=== PATIENT | male | born 1975 | race Two or more races ===

== ENCOUNTER 2019-04-21 17:30 | Emergency (ER) | payer OTHER ==
[~2019-04-21] VITALS: Ht 167.6 cm; Wt 95.3 kg
--- NOTE | 2019-04-21 17:42 | NUR ---
PT BIBPD FROM CARE HOME, C/O CHEST PAIN SHARP LIKE, NON RADIATING, PT IS AAOX3, NOT IN RESPIRATORY DISTRESS, HOOKED TO MONITOR, KEPT RESTED AND COMFORTABLE, WILL CONTINUE TO MONITOR.
[2019-04-21] MEDS ORDERED: LORAZEPAM 1 MG TABLET PO ONE (18:00)
--- NOTE | 2019-04-21 18:00 | NUR ---
SEEN AND EXAMINED BY JAYDON GALEANA
[2019-04-21 18:09] LABS: BASOPHILS # (AUTO) 0.1 /CMM (0.0-0.2); BASOPHILS % (AUTO) 0.6 % (0.0-2.0); EOSINOPHILS % (AUTO) 0.8 % (0.0-6.0); HEMATOCRIT 46 % (39-51); HEMOGLOBIN 15.7 g/dL (13.5-17.5); LYMPHOCYTES # (AUTO) 2.1 /CMM (0.8-4.8); LYMPHOCYTES % (AUTO) 15.2 % (20.0-44.0); MEAN CORPUSCULAR HGB CONC 34 g/dl (31.0-36.0); MEAN CORPUSCULAR VOLUME 84 fL (80-96); MONOCYTES # (AUTO) 0.8 /CMM (0.1-1.30); MONOCYTES % (AUTO) 5.9 % (2.0-12.0); NEUTROPHILS # (AUTO) 10.7 /CMM (1.8-8.9); NEUTROPHILS % (AUTO) 77.5 % (43.0-81.0); PLATELET COUNT (AUTO) 273 /CMM (150-450); RED BLOOD CELL COUNT(AUTO) 5.44 MIL/uL (4.5-6.0); WHITE BLOOD COUNT (AUTO) 13.8 K/uL (4.3-11.0)
[2019-04-21 18:19] LABS: CALCIUM, SERUM 9.7 mg/dL (8.5-10.1); CARBON DIOXIDE 27 mmol/L (21-32); CHLORIDE 96 mmol/L (98-107); CREATININE 0.9 mg/dL (0.6-1.3); POTASSIUM 4.3 mmol/L (3.5-5.1); SODIUM SERUM 130 mmol/L (136-145); UREA NITROGEN, BLOOD 16 mg/dL (7-18)
--- NOTE | 2019-04-21 18:20 | NUR ---
Carlos victor in [facility] - 04/21/19 at 1827 by TROY SEEN AND EXAMINED BY JAYDON JACOBS.
--- NOTE | 2019-04-21 18:24 | NUR ---
HOTEL RECREATIONAL FACILITIES MANAGER AT BEDSIDE FOR XRAY.
[2019-04-21 18:26] LABS: GLUCOSE 477 mg/dL (74-106)
[2019-04-21] MEDS ORDERED: IV NS 0.9% 1,000 ML BAG IV ONE (18:30)
[2019-04-21] MEDS ORDERED: LORAZEPAM 1 MG TABLET ONE (18:30)
--- NOTE | 2019-04-21 19:22 | NUR ---
REPORT GIVEN TO JUDITH CONRAD FOR ELISHA.
[2019-04-21 20:06] LABS: APPEARANCE,URINE HAZY (CLEAR); BILIRUBIN,URINE Negative (NEGATIVE); BLOOD, URINE Negative Ery/uL (NEGATIVE); COLOR,URINE Yellow (YELLOW); KETONES,URINE Negative (NEGATIVE); LEUKOCYTE ESTERASE ,URINE Trace (NEGATIVE); NITRITE, URINE Negative (NEGATIVE); PROTEIN,URINE Negative (NEGATIVE); UGLUCOSE 500 MG/DL mg/dL (NEGATIVE); UROBILINOGEN,URINE 0.2 EU/dL (0.2)
[2019-04-21] MEDS ORDERED: INSULIN ASPART/LISPRO 100 UNIT/ML CARTRIDGE SQ STA (20:18)
[2019-04-21 20:21] LABS: BACTERIA,URINE Moderate /HPF (None Seen); RBC,URINE 0-2 /HPF (0-2); SQUAMOUS EPITHELIAL CELL,UR Few /HPF (None Seen); YEAST,URINE Moderate /HPF (None Seen)
[2019-04-21] MEDS ORDERED: INSULIN REGULAR, HUMAN 100 UNIT/ML 10 ML VIAL ONE (20:23)
--- NOTE | 2019-04-21 20:34 | NUR ---
Patient is resting comfortably in bed . VSS Will cont to monitor ,
--- NOTE | 2019-04-21 21:44 | NUR ---
Patient is resting comfortably in bed with eyes closed. Easily aroused. VSS called lab fro trop draw
--- NOTE | 2019-04-21 22:46 | NUR ---
Patient discharged to [facility] in stable condition in custody. Written and verbal after care instructions given. Patient verbalizes understanding of instruction.
[2019-04-21 23:24] VITALS: BP 155/88
== END 2019-04-21 23:25 ==
LOC: ER 17:42
DX: E11.65 Type 2 diabetes mellitus with hyperglycemia (principal); R07.89 Other chest pain; I10 Essential (primary) hypertension; F41.9 Anxiety disorder, unspecified; F12.90 Cannabis use, unspecified, uncomplicated
CPT/HCPCS: 36415; 71045; 80048; 81001; 82962 ×3; 84484 ×2; 85025; 93005 ×2; 96360; 96372; 99284; J1815; J7030; 81000-TC; 87086-TC

== ENCOUNTER 2021-05-17 03:49 | Inpatient (IN) | payer MEDICAID ==
[~2021-05-17] VITALS: Ht 167.6 cm; Wt 97.5 kg
--- NOTE | 2021-05-17 04:02 | NUR ---
PT AAOX4. BIBSELF C/O HIGH SBP AND ANXIETY. PT WAS AT [facility], CHECKED HIS BP AND STATED IT WAS IN THE 180S. PT PLACED IN BED 2 ON MONITOR AND PULSE OX. AWAITING ER MD FOR EVAL AND ORDERS.
[2021-05-17 04:49] LABS: BASOPHILS # (AUTO) 0.1 K/uL (0.0-0.2); BASOPHILS % (AUTO) 0.4 % (0.0-2.0); EOSINOPHILS % (AUTO) 1.8 % (0.0-6.0); HEMATOCRIT 44 % (39-51); HEMOGLOBIN 14.7 g/dL (13.5-17.5); LYMPHOCYTES # (AUTO) 1.4 K/uL (0.8-4.8); LYMPHOCYTES % (AUTO) 9.5 % (20.0-44.0); MEAN CORPUSCULAR HGB CONC 34 g/dl (31.0-36.0); MEAN CORPUSCULAR VOLUME 85 fL (80-96); MONOCYTES # (AUTO) 0.7 K/uL (0.1-1.30); MONOCYTES % (AUTO) 4.8 % (2.0-12.0); NEUTROPHILS # (AUTO) 12.4 K/uL (1.8-8.9); NEUTROPHILS % (AUTO) 83.5 % (43.0-81.0); PLATELET COUNT (AUTO) 244 K/uL (150-450); RED BLOOD CELL COUNT(AUTO) 5.16 MIL/uL (4.5-6.0); WHITE BLOOD COUNT (AUTO) 14.9 K/uL (4.3-11.0)
--- NOTE | 2021-05-17 04:51 | NUR ---
PT PLACED ON 2L NC. ON ROOM AIR SAT 90%. W/ NC SAT 96%.
--- NOTE | 2021-05-17 04:56 | NUR ---
XRAY AT BEDSIDE
[2021-05-17 04:59] LABS: CALCIUM, SERUM 8.9 mg/dL (8.5-10.1); CARBON DIOXIDE 27 mmol/L (21-32); CHLORIDE 101 mmol/L (98-107); CREATININE 0.9 mg/dL (0.6-1.3); GLUCOSE 332 mg/dL (74-106); POTASSIUM 3.8 mmol/L (3.5-5.1); SODIUM SERUM 136 mmol/L (136-145); UREA NITROGEN, BLOOD 15 mg/dL (7-18)
[2021-05-17] MEDS ORDERED: LORAZEPAM 1 MG TABLET PO ONE (05:00)
--- NOTE | 2021-05-17 05:17 | NUR ---
Patient is resting comfortably in bed with eyes closed. Easily aroused. VSS
--- NOTE | 2021-05-17 05:38 | NUR ---
PT AMBULATED TO THE RESTROOM
--- NOTE | 2021-05-17 05:39 | NUR ---
NIMCOID SWABBED, SENT TO LAB.
[2021-05-17] MEDS ORDERED: ASPIRIN EC 325 MG TABLET.DR PO ONE ×2 (07:00→07:01)
[2021-05-17] MEDS: METOPROLOL SUCCINATE 50 MG TAB.SR.24H PO SCH (07:03)
--- NOTE | 2021-05-17 07:11 | NUR ---
PANEL PAGED PER DR'S ORDER. ADMITTING: DR PEREA
--- NOTE | 2021-05-17 07:32 | NUR ---
panel recreation assistant paged
--- NOTE | 2021-05-17 07:44 | NUR ---
MANUEL WAYNE TO PANEL MD IN PROGRESS.
--- NOTE | 2021-05-17 08:02 | NUR ---
BED 114-2
--- NOTE | 2021-05-17 08:11 | NUR ---
REPORT GIVEN TO SERVANDO WONG. AWAITING TRANSFER TO FLOOR.
--- NOTE | 2021-05-17 08:39 | NUR ---
PATIENT TRANSFERRED TO ROOM 114-2 VIA ACLS PROTOCOL. PATIENT A/OX4, IN STABLE CONDITION.
[2021-05-17 09:00] VITALS: BP 170/104
[2021-05-17] MEDS ORDERED: MAG HYDROX/AL HYDROX/SIMETH 30 ML UDC PO PRN (09:30)
[2021-05-17] MEDS ORDERED: ZOLPIDEM TARTRATE 5 MG TABLET PO PRN (09:30)
[2021-05-17] MEDS ORDERED: ACETAMINOPHEN 325 MG TABLET PO PRN (09:30)
[2021-05-17] MEDS ORDERED: Z GUARD REMEDY 2 OZ OINT TP PRN (09:30)
[2021-05-17] MEDS ORDERED: ONDANSETRON HCL/PF 4 MG/2 ML VIAL IVP PRN (09:30)
[2021-05-17] MEDS ORDERED: MAGNESIUM HYDROXIDE 30 ML UDC PO PRN (09:30)
[2021-05-17] MEDS ORDERED: hydrALAZINE HCL 25 MG TABLET PO STA (10:09)
[2021-05-17] MEDS: LISINOPRIL (20MG) 20 MG TABLET PO SCH (10:30)
[2021-05-17 13:00] VITALS: BP 161/92
[2021-05-17 17:00] VITALS: BP 168/90
--- NOTE | 2021-05-17 19:12 | NUR ---
SOFTWARE INSTALLATION ENGINEER: CONTINUITY OF CARE Patient in bed, awake. Sinus rhythm with PVC in the Tele monitor, denies chest pain. Tolerating room air, no c/o sob. Maintained safety.
--- NOTE | 2021-05-17 19:46 | NUR ---
NUCLEAR MEDICINE TECHNICIAN: NECK PAIN Given Tylenol PO for neck pain 01/25, will reassess.
--- NOTE | 2021-05-17 20:12 | NUR ---
patient received from er. vital signs taken. skin intact with multiple body tattoos. safety precautions implemented, side rails up x2, call light within reach. md made aware of elevated bp. obtained orders to administer hydralazine 25 mg po once and start patient on lisinopril daily and continue to monitor. will endorse care to upcoming shift.
[2021-05-17] MEDS: hydrALAZINE HCL IV 20 MG VIAL IV PRN (20:49)
[2021-05-17 21:18] VITALS: BP 198/116
--- NOTE | 2021-05-17 22:08 | NUR ---
FACILITY PRACTICE SPECIALIST: BP ELEVATED (20:49) BP 198/116 patient denies headache, no c/o chest pain. Notified INSULATION POWER UNIT TENDER Luz Maria. PRN Hydralazine given, will reassess.
--- NOTE | 2021-05-17 22:50 | NUR ---
CLINICAL DENTAL TECHNICIAN: UNABLE TO SLEEP Patient requesting sleep aid, inability to sleep. PRN Ambien given, will reassess hours of sleep with Ambien.
[2021-05-18 01:01] VITALS: BP 172/107
[2021-05-18] MEDS: hydrALAZINE HCL IV 20 MG VIAL IV PRN ×3 (04:42→20:57)
--- NOTE | 2021-05-18 04:42 | NUR ---
MULTI CRAFT MAINTENANCE TECHNICIAN: BP ELEVATED BP 165/94 patient denies headache, no c/o chest pain. PRN Hydralazine given, will reassess
[2021-05-18 05:02] VITALS: BP 165/94
[2021-05-18 05:58] LABS: CALCIUM, SERUM 8.8 mg/dL (8.5-10.1); CREATININE 0.7 mg/dL (0.6-1.3); MAGNESIUM 1.9 mg/dL (1.8-2.4); PHOSPHORUS 3.1 mg/dL (2.5-4.9); POTASSIUM 3.6 mmol/L (3.5-5.1)
[2021-05-18 06:11] LABS: BASOPHILS % (AUTO) 0.4 % (0.0-2.0); EOSINOPHILS % (AUTO) 4.1 % (0.0-6.0); HEMATOCRIT 45 % (39-51); HEMOGLOBIN 15.1 g/dL (13.5-17.5); LYMPHOCYTES # (AUTO) 2.6 K/uL (0.8-4.8); LYMPHOCYTES % (AUTO) 23.3 % (20.0-44.0); MEAN CORPUSCULAR HGB CONC 34 g/dl (31.0-36.0); MEAN CORPUSCULAR VOLUME 85 fL (80-96); MONOCYTES # (AUTO) 1.1 K/uL (0.1-1.30); MONOCYTES % (AUTO) 9.6 % (2.0-12.0); NEUTROPHILS % (AUTO) 62.6 % (43.0-81.0); PLATELET COUNT (AUTO) 273 K/uL (150-450); RED BLOOD CELL COUNT(AUTO) 5.27 MIL/uL (4.5-6.0); WHITE BLOOD COUNT (AUTO) 11.2 K/uL (4.3-11.0)
--- NOTE | 2021-05-18 06:39 | NUR ---
ASSEMBLY ASSOCIATE: END OF SHIFT REPORT Sinus rhythm with PVS HR 80's in the Tele monitor. No episode of chest pain. Hours of sleep 7hrs with Joelleien. Echo pending result. Maintained safety. BP improving after PRN Hydralazine. Will endorse to oncoming RN.
[2021-05-18] MEDS: METOPROLOL SUCCINATE 50 MG TAB.SR.24H PO SCH (07:15)
--- NOTE | 2021-05-18 07:19 | NUR ---
CAREER DEVELOPMENT COUNSELOR: BP ELEVATED BP 182/100 no c/o chest pain. Reports headache. Toprol XL am dose given. PRN Hydralazine not due at this time. Endorse to JUDITH Her to follow up with am Doctor.
--- NOTE | 2021-05-18 07:25 | NUR ---
RN OPENING NOTES PATIENT RESTING IN BED, ALERT AND ORIENTED X4, ABLE TO MAKE NEEDS KNOWN. NO COMPLAINTS OF PAIN AT THIS TIME. PATIENT ON ROOM AIR BREATHING EVEN AND UNLABORED AND TOLERATING WELL. PATIENT ON TELE MONITOR. IV SITE ON RIGHT HAND # 20 G PATENT AND INTACT RUNNING D5NS AT 100 ML/HR. SAFETY MEASURES IMPLEMENTED, BED LOCKED IN LOWEST POSITION, SIDE RAILS UP X2, CALL LIGHT WITHIN REACH. WILL CONTINUE TO MONITOR AND PROVIDE CARE THROUGHOUT SHIFT.
[2021-05-18 09:00] VITALS: BP 167/101
[2021-05-18] MEDS: LISINOPRIL (20MG) 20 MG TABLET PO SCH (09:48)
[2021-05-18] MEDS ORDERED: ATORVASTATIN 40 MG TABLET PO SCH (10:00)
[2021-05-18] MEDS ORDERED: AMLODIPINE BESYLATE 10 MG TABLET PO SCH (10:00)
[2021-05-18] MEDS ORDERED: ASPIRIN 81 MG TAB.CHEW PO SCH (10:00)
[2021-05-18] MEDS: IBUPROFEN 400 MG TABLET PO PRN ×2 (10:47→18:53)
[2021-05-18 13:00] VITALS: BP 162/104
[2021-05-18 17:00] VITALS: BP 163/95
--- NOTE | 2021-05-18 19:00 | NUR ---
RN CLOSING NOTES PATIENT IN BED, ALERT AND ORIENTED X4, ABLE TO MAKE NEEDS KNOWN. NO COMPLAINTS OF PAIN AT THIS TIME. PATIENT ON ROOM AIR BREATHING EVEN AND UNLABORED AND TOLERATING WELL. IV SITE ON RIGHT HAND # 20 G PATENT AND INTACT. IBUPROFEN ADMINISTERED FOR PATIENT COMPLAINTS OF RIGHT SCAPULA DISCOMFORT. SAFETY MEASURES IMPLEMENTED, BED LOCKED IN LOWEST POSITION, SIDE RAILS UP X2, CALL LIGHT WITHIN REACH. WILL ENDORSE CARE TO UPCOMING SHIFT.
--- NOTE | 2021-05-18 19:30 | NUR ---
RN NOTES Received patient awake on bed, a/ox4, ambulatory, at bedside, denies pain, no SOB, call light within reach, siderailsupx2, will continue to monitor
--- NOTE | 2021-05-18 21:03 | NUR ---
RN NOTES Patient Blood Pressure 168/101- Hydralazine 10mg IV given as ordered
[2021-05-18 21:07] VITALS: BP 168/101
[2021-05-19 05:00] VITALS: BP 180/94
[2021-05-19 06:40] VITALS: BP 186/94
[2021-05-19] MEDS: METOPROLOL SUCCINATE 50 MG TAB.SR.24H PO SCH (06:40)
--- NOTE | 2021-05-19 06:50 | NUR ---
RN NOTES PATIENT LEFT AGAINST MEDICAL ADVICE, PER PATIENT HIS FATHER WILL BE DISCHARGE FROM THE [facility] AT 0800AM AND NOBODY'S AT HOME, GAVE EDUCATION REGARDING THE CIRCUMSTANCES WHENEVER HE LEAVES AGAINST MEDICAL ADVICE, PT UNDERSTOOD AND STILL WANT TO LEAVE. CORBY SWANSON MADE AWARE
[2021-05-19] MEDS ORDERED: LISINOPRIL (20MG) 20 MG TABLET PO SCH (09:00)
== END 2021-05-19 06:50 | disposition left against medical advice (07) | DRG 812 ==
LOC: ER 03:49 → TELE1 08:14 → MEDSG1 05-18 19:40
PROVIDERS: ADMIT Family Medicine; ATTEND Family Medicine
DX: T50.901A Poisoning by unspecified drugs, medicaments and biological substances, accidental (unintentional), initial encounter (principal); E11.65 Type 2 diabetes mellitus with hyperglycemia; D72.829 Elevated white blood cell count, unspecified; E11.9 Type 2 diabetes mellitus without complications; E66.9 Obesity, unspecified; F12.90 Cannabis use, unspecified, uncomplicated; R07.9 Chest pain, unspecified; I10 Essential (primary) hypertension; Z68.34 Body mass index [BMI] 34.0-34.9, adult; Z20.822 Contact with and (suspected) exposure to COVID-19; Z83.3 Family history of diabetes mellitus; Z82.3 Family history of stroke; F41.9 Anxiety disorder, unspecified; Y92.009 Unspecified place in unspecified non-institutional (private) residence as the place of occurrence of the external cause
CPT/HCPCS: 36415; 71045-TC; 80048-TC; 80061-TC; 82962-TC; 83735-TC; 84100-TC; 84484-TC; 85025-TC; 87081-TC; 93307-TC; C9803; G0378; J0360

== ENCOUNTER 2021-08-08 17:39 | Emergency (ER) | payer MEDICAID, OTHER ==
[~2021-08-08] VITALS: Ht 167.6 cm; Wt 90.7 kg
--- NOTE | 2021-08-08 18:03 | NUR ---
CALLED TO TRIAGE,NO ANSWER
[2021-08-08] MEDS ORDERED: IBUPROFEN 600 MG TABLET PO ONE (19:00)
[2021-08-08] MEDS ORDERED: TDAP [DIPH/PERTUSSIS/TET] 0.5 ML VIAL IM ONE ×2 (19:00→19:08)
[2021-08-08] MEDS ORDERED: IBUPROFEN 600 MG TABLET ONE (19:08)
[2021-08-08] MEDS ORDERED: TETRACAINE HCL 0.5% OPHTALMIC 15 ML BOTTLE OP ONE (19:30)
[2021-08-08] MEDS ORDERED: FLUORESCEIN SODIUM OPHTH 1 EA STRIP OP ONE (19:30)
[2021-08-08] MEDS ORDERED: FLUORESCEIN SODIUM OPHTH 1 EA STRIP ONE (19:36)
[2021-08-08] MEDS ORDERED: IBUP-1955 PO (19:44)
[2021-08-08] MEDS ORDERED: POLY10DR3 EACHEYE (19:44)
--- NOTE | 2021-08-08 19:57 | NUR ---
Patient discharged to home in stable condition. Rx and Written and verbal after care instructions given. Patient verbalizes understanding of instruction.
[2021-08-08 21:30] VITALS: BP 150/85
== END 2021-08-08 19:58 | disposition home or self-care (01) ==
LOC: ER 17:44
DX: S01.111A Laceration without foreign body of right eyelid and periocular area, initial encounter (principal); I10 Essential (primary) hypertension; W25.XXXA Contact with sharp glass, initial encounter; Y93.89 Activity, other specified; Y92.091 Bathroom in other non-institutional residence as the place of occurrence of the external cause; Y99.8 Other external cause status
CPT/HCPCS: 70140-TC; 90715

== ENCOUNTER 2022-09-13 14:26 | Inpatient (IN) | payer MEDICAID, OTHER ==
[~2022-09-13] VITALS: Ht 167.6 cm; Wt 90.3 kg
[~2022-09-13 14:26] MED LIST: IBUP-1955 PO; POLY10DR3 EACHEYE
--- NOTE | 2022-09-13 15:19 | NUR ---
PT RETURNED FROM RADIOLOGY
--- NOTE | 2022-09-13 15:22 | NUR ---
COVID SWAB COLLECTED AND SENT TO LAB
--- NOTE | 2022-09-13 15:23 | NUR ---
established IV line at RAC 20g infusing
--- NOTE | 2022-09-13 15:24 | NUR ---
blood draw sent to lab.
[2022-09-13 15:38] LABS: BASOPHILS # (AUTO) 0.1 K/uL (0.0-0.2); BASOPHILS % (AUTO) 0.6 % (0.0-2.0); EOSINOPHILS % (AUTO) 2.6 % (0.0-6.0); HEMATOCRIT 44 % (39-51); HEMOGLOBIN 14.8 g/dL (13.5-17.5); LYMPHOCYTES # (AUTO) 2.7 K/uL (0.8-4.8); LYMPHOCYTES % (AUTO) 22.8 % (20.0-44.0); MEAN CORPUSCULAR HGB CONC 34 g/dl (31.0-36.0); MEAN CORPUSCULAR VOLUME 83 fL (80-96); MONOCYTES # (AUTO) 0.8 K/uL (0.1-1.30); MONOCYTES % (AUTO) 6.4 % (2.0-12.0); NEUTROPHILS % (AUTO) 67.6 % (43.0-81.0); PLATELET COUNT (AUTO) 254 K/uL (150-450); RED BLOOD CELL COUNT(AUTO) 5.25 MIL/uL (4.5-6.0); WHITE BLOOD COUNT (AUTO) 11.8 K/uL (4.3-11.0)
[2022-09-13 16:20] LABS: CALCIUM, SERUM 8.9 mg/dL (8.5-10.1); CARBON DIOXIDE 29 mmol/L (21-32); CHLORIDE 100 mmol/L (98-107); GLUCOSE 332 mg/dL (74-106); POTASSIUM 3.7 mmol/L (3.5-5.1); SODIUM SERUM 135 mmol/L (136-145); UREA NITROGEN, BLOOD 14 mg/dL (7-18)
[2022-09-13 16:26] LABS: ALANINE AMINOTRANSFERASE 18 U/L (12-78); ALBUMIN 3.5 g/dL (3.4-5.0); ALKALINE PHOSPHATASE 113 U/L (46-116); ASPARTATE AMINOTRANSFERASE 8 U/L (15-37); BILIRUBIN,DIRECT 0.1 mg/dL (0.0-0.2); BILIRUBIN,TOTAL 0.4 mg/dL (0.2-1.0); TOTAL PROTEIN, SERUM 7.3 g/dL (6.4-8.2)
[2022-09-13 16:38] LABS: MAGNESIUM 1.9 mg/dL (1.8-2.4)
[2022-09-13 16:44] LABS: BILIRUBIN,URINE NEGATIVE (NEGATIVE); COLOR,URINE YELLOW (YELLOW); LEUKOCYTE ESTERASE ,URINE NEGATIVE (NEGATIVE); NITRITE, URINE NEGATIVE (NEGATIVE); PROTEIN,URINE 100 mg/dl (NEGATIVE); UGLUCOSE >=1000 mg/dL (NEGATIVE); UROBILINOGEN,URINE 0.2 EU/dL (0.2)
[2022-09-13 17:12] LABS: THYROID STIMULATING HORMONE 0.459 uIU/mL (0.358-3.74)
[2022-09-13] MEDS ORDERED: LABETALOL HCL IV 100MG VIAL IV ONE (17:30)
--- NOTE | 2022-09-13 17:36 | NUR ---
BP at 170's/100's MD made aware.
[2022-09-13] MEDS ORDERED: LABETALOL HCL IV 100MG VIAL ONE (17:40)
[2022-09-13] MEDS ORDERED: DEXTROSE 50%-WATER 50 ML DISP.SYRIN IV PRN (18:00)
[2022-09-13 18:01] LABS: BACTERIA,URINE None seen /HPF (None Seen); RBC,URINE 0-2 /HPF (0-2); SQUAMOUS EPITHELIAL CELL,UR 0-2 /HPF (None Seen); WBC,URINE 0-2 /HPF (0-3)
--- NOTE | 2022-09-13 18:31 | NUR ---
BP 162/92
--- NOTE | 2022-09-13 19:41 | NUR ---
RECEIVED THIS MALE PATIENT AAOX4. PATIENT CAME WITH COMPLAINT OF DIZZINESS. ATTACHED TO MONITOR. VITALS CHECKED.
--- NOTE | 2022-09-13 20:31 | NUR ---
TELE 320-2
--- NOTE | 2022-09-13 21:11 | NUR ---
REPORT GIVEN TO JUDITH BEAULIEU
--- NOTE | 2022-09-13 21:35 | NUR ---
TRANSFERRED TO ROOM
[2022-09-13 21:45] VITALS: BP 179/113
[2022-09-13 22:00] VITALS: BP 179/113
[2022-09-13] MEDS: ATORVASTATIN 40 MG TABLET PO SCH (22:00)
--- NOTE | 2022-09-13 22:00 | NUR ---
CAGE FIGHTER NOTE ADMITTED THIS PATIENT FROM ER VIA RNEY. PATIENT IS AWAKE, ALERT AND ORIENTED X 4. BREATHING EVEN AND NONLABORED. ON ROOM AIR; TOLERATING WELL. NOT IN ANY FORM OF RESPIRATORY DISTRESS. NO C/O PAIN OR DISCOMFORT AT THIS TIME. ABLE TO MAKE NEEDS KNOWN. ON TELEMETRY MONITORING WHICH READS SINUS RHYTHM HR-77 BPM. WITH IV ACCESS ON RIGHT ANTECUBITAL 20g; PATENT, INTACT AND SALINE LOCKED. BODY ASSESSMENT DONE: SKIN IS INTACT. ALL PERSONAL BELONGINGS CHECKED AND INVENTORY DONE. ORIENTED TO STAFF, ROOM AND UNIT. SAFETY MEASURES IMPLEMENTED: CALL LIGHT AND TABLE WITHIN REACH, SIDE RAILS UP X 2, BED IN LOWEST LOCKED POSITION. WILL CONTINUE TO MONITOR.
--- NOTE | 2022-09-13 22:30 | NUR ---
EKG COMPLETED AT 7670, RESULTS GIVEN TO MINES SAFETY ENGINEER GRACE
[2022-09-13] MEDS: IV NS 0.9% 1,000 ML IV PRN (22:31)
[2022-09-13] MEDS: BLOOD SUGAR DIAGNOSTIC 1 EACH STRIP IN SCH (22:57)
[2022-09-13] MEDS ORDERED: HYDROCODONE/APAP 5/325MG TABLET PO PRN (23:30)
[2022-09-13] MEDS: *INSULIN REGULAR(HUMULIN R)HUM 100 UNIT/ML VIAL SQ PRN (23:51)
[2022-09-13] MEDS: MORPHINE SULFATE INJ 4 MG/ML DISP.SYRIN IV PRN (23:57)
--- NOTE | 2022-09-13 23:57 | NUR ---
RN NOTE PATIENT C/O FACIAL PAIN AND HEADACHE 8/10 PAIN SCALE. PRN MORPHINE 4MG GIVEN IV ORDERED. WILL CONTINUE TO MONITOR AND REASSESS PT.
[2022-09-14] VITALS: BP 173/85
[2022-09-14 04:00] VITALS: BP 151/87
[2022-09-14] MEDS: BLOOD SUGAR DIAGNOSTIC 1 EACH STRIP IN SCH ×4 (06:15→21:45)
[2022-09-14] MEDS: INSULIN REGULAR, HUMAN 100 UNIT/ML 3 ML VIAL SQ PRN ×3 (06:19→16:55)
--- NOTE | 2022-09-14 07:00 | NUR ---
RN CLOSING NOTE PATIENT IN BED; AWAKE, ALERT AND ORIENTED X 4. BREATHING EVEN AND NONLABORED. STABLE ON ROOM AIR. IN NO APPARENT DISTRESS. NO C/O PAIN OR DISCOMFORT AT THIS TIME. ON TELE MONITORING WHICH READS SINUS RHYTHM HR-67 BPM. WITH IV ACCESS ON RIGHT ANTECUBITAL 20g; PATENT AND INTACT RUNNING WITH NS 1L REGULATED @ 90 CC/HR; FLUSHES WELL. SAFETY MEASURES MAINTAINED: CALL LIGHT AND TABLE WITHIN REACH, SIDE RAILS UP X 2, BED IN LOWEST LOCKED POSITION. ENDORSED TO JUDITH MENDEZ FOR ELISHA.
[2022-09-14 09:00] VITALS: BP 178/98
[2022-09-14] MEDS ORDERED: ASPIRIN 81 MG TAB.CHEW PO ONE (09:00)
--- NOTE | 2022-09-14 09:34 | NUR ---
PATIENT REFUSING MRI PER AUTOMATED TELLER MANAGER RADHA)
[2022-09-14 10:53] LABS: BASOPHILS # (AUTO) 0.1 K/uL (0.0-0.2); BASOPHILS % (AUTO) 0.7 % (0.0-2.0); EOSINOPHILS % (AUTO) 3.3 % (0.0-6.0); HEMATOCRIT 44 % (39-51); HEMOGLOBIN 14.8 g/dL (13.5-17.5); LYMPHOCYTES # (AUTO) 2.2 K/uL (0.8-4.8); LYMPHOCYTES % (AUTO) 20.1 % (20.0-44.0); MEAN CORPUSCULAR HGB CONC 34 g/dl (31.0-36.0); MEAN CORPUSCULAR VOLUME 84 fL (80-96); MONOCYTES # (AUTO) 0.6 K/uL (0.1-1.30); MONOCYTES % (AUTO) 5.8 % (2.0-12.0); NEUTROPHILS # (AUTO) 7.5 K/uL (1.8-8.9); NEUTROPHILS % (AUTO) 70.1 % (43.0-81.0); PLATELET COUNT (AUTO) 262 K/uL (150-450); WHITE BLOOD COUNT (AUTO) 10.8 K/uL (4.3-11.0)
[2022-09-14 11:07] LABS: ALBUMIN 3.3 g/dL (3.4-5.0); BILIRUBIN,TOTAL 0.7 mg/dL (0.2-1.0); CALCIUM, SERUM 8.6 mg/dL (8.5-10.1); CREATININE 0.8 mg/dL (0.6-1.3); POTASSIUM 3.6 mmol/L (3.5-5.1); TOTAL PROTEIN, SERUM 7.1 g/dL (6.4-8.2)
--- NOTE | 2022-09-14 12:00 | NUR ---
Product Development Worker Consult SW received a consult request for homelessness. Pt. is 46 y.o. male who was admitted for dizziness. SW met with pt. at bedside. Pt. appears unkempt and is alert and oriented x4 and was cooperative throughout assessment.Pt. made normal eye contact, had a depressed mood, and had congruent affect. During assessment, pt. confirmed personal information and persons of contact. Pt. stated [place] the [place] [address] and would stay in motels. Per pt. report he is unsure if he is ambulatory because he still feels dizziness and is not independent with his ADLs. Pt. expressed feeling stressed because he can do basic daily activities. SW validated pt.s feelings and provided safe space for pt. to express feelings. Pt. reported receiving [employer] benefits. Pt. reports a hx of cannabis use. Pt. reported no hx of psychiatric dx but stated he is feeling depressed and has no visual or auditory hallucinations. JOAO assessed for suicidal and homicidal ideation in which pt. reported having suicidal ideation with plan (Pt stated he would not seek medical treatment and let himself get sick) and began to cry. SW provided psycho education re coping skills and highlighted pt.s strength in seeking tx. mental health resources in which pt. appeared agreeable. DC plan: When asked about pt.s plans after being discharged, pt. reported he was going back to the streets, or he was possibly going to stay at his sons house (Rogelio Reaagan ) but was not confirmed. JOAO offered pt. mcc placement in which pt. was not agreeable due to negative experiences in shelters. JOAO also offered pt. voluntary admission to a psych facility in which pt. declined. JOAO provided pt. with homeless resources and mental health resources in which pt. accepted them. Pt. signed the homeless waiver and was placed in his chart. JOAO discussed plan to request a psych eval due to SI with nurse and she was agreeable. Counseling--Outpatient [facility] [address] [place] [address] [place] [address] (Specializes in in-depth psychotherapy for emotional distress: anxiety, depression, interpersonal conflicts, life transitions, childhood abuse) [facility] [address] [place] [address] (Assist with solving problem marital difficulties, separation & divorce, aging parents, & grief, chronic & terminal illness) [facility] [address] [place] [address] (Deal with loss & grief, anxiety, marital difficulties) Homebound/Mental Health Services [address] [facility] [address] [place], [place] [id number] (Provide in-home mental services to people who are incapable of leaving their homes) [facility] [address] [facility] [place] [address] [facility] [address] [facility]. [place], [place] [id number] PSYCHIATRIC OUTPATIENT SERVICES [facility] Partial Hospitalization and Intensive Outpatient Program (Managed Care and [place] Only)[address] [facility] [phone] [facility] Partial Hospitalization and Outpatient [id number] [facility]. [address] [place], [place] [phone] [facility] [place] [id number] [facility] [place], [place] [phone] [facility] Partial Hospitalization and Outpatient [id number] [place], [phone] Substance Abuse resources provided included: [facility] Substance Abuse Self-Helpline (SAS) ; [facility] [address] [facility]. [place] [id number] ; [facility] [address] [facility] [address] ; [facility] [address] [address] [facility] [address] ; [facility] [address] [facility] [address] ; [facility] [address] [facility] [place] [address] ; [facility] [address] [facility] [phone] ; [facility] Substance Abuse Helpline(SAS)-[facility] ; [facility] ; [facility] [place]; [facility] [place]; [facility] [place]; [facility] Adam Castelan; [facility] [place]; [facility]; [facility]; [facility]'s [employer] [facility] Maria Guadalupe; Alcoholics Anonymous -SFV; Je-Mjeh-Hqicfxe ; Marijuana Anonymous -SFV; Narcotics Anonymous www.na.org;
[2022-09-14] MEDS ORDERED: IOHEXOL-350 100 ML VIAL IV ONE (14:14)
[2022-09-14] MEDS ORDERED: IV NS 0.9% 250 ML IV ONE (14:14)
[2022-09-14] MEDS ORDERED: CT SWABBABLE VALVE TRANS SET 1 EA INFUS.SET MC ONE (14:14)
[2022-09-14 16:48] VITALS: BP_SYST 165; BP_SYST 190; BP_DIAS 102; BP_DIAS 103
[2022-09-14] MEDS: MORPHINE SULFATE INJ 4 MG/ML DISP.SYRIN IV PRN (18:07)
--- NOTE | 2022-09-14 18:14 | NUR ---
NURSE CASE MANAGER CLOSING NOTE PATIENT RECEIVED IN BED AND SLEEPING. A/O X4 AND ABLE TO VERBALIZE ALL NEEDS. PATIENT REMAINS ON SHIP UNLOADER. IV ACCESS TO RAC REMAINS INTACT AND PATENT. ASSESSED BY SPEECH THERAPY ON SHIFT WITH DIET ADVANCED TO [facility]. PATIENT OBSERVED TO HAVE MANY EPISODES OF CRYING AND STATING THAT HE IS "DEPRESSED" TOLERATED MEALS WELL. PSYCH CONSULT ORDERED PER DOCTOR. PATIENT ALSO BY PT ON SHIFT. BLOOD SUGAR LEVELS ON SHIFT 1200= [phone]= 212, 6U OF INSULIN GIVEN EACH TIME FOR COVERAGE PER SLIDING SCALE. CTA OF BRAIN AND CAROTID COMPLETED ON SHIFT. TOLERATED PROCEDURE WELL. C/O PAIN TO RIGHT UPPER SHOULDER AREA. RECEIVED MORPHINE @ 1807. MEDICATION EFFECTIVE. SAFETY MEASURES INTACT, WITH BED LOW AND LOCKED. SIDERAIL UP X2, CALL LIGHT WITHIN REACH. WILL CONT TO MONITOR.
--- NOTE | 2022-09-14 19:35 | NUR ---
GUINEA PIG BREEDER OPENING NOTE RECEIVED PT AWAKE, SITTING IN BED. PT A/O X4, ABLE TO MAKE NEEDS KNOWN. IV ACCESS TO RIGHT AC 20G, INTACT, AND PATENT. NO ACUTE DISTRESS NOTED, NO S/S OF PAIN OR DISCOMFORT SEEN AT THIS TIME. SAFETY MEASURES IN PLACE: BED LOCKED IN LOWEST POSITION, SIDE RAILS UP X2, CALL LIGHT, AND BED SIDE TABLE WITHIN REACH. WILL CONTINUE TO MONITOR PT.
[2022-09-14 20:00] VITALS: BP 173/95
[2022-09-14] MEDS: ATORVASTATIN 40 MG TABLET PO SCH (21:38)
[2022-09-14] MEDS: *INSULIN REGULAR(HUMULIN R)HUM 100 UNIT/ML VIAL SQ PRN (21:44)
--- NOTE | 2022-09-14 22:57 | NUR ---
FRUIT PEELER NOTE PT'S BP WAS 173/95. BP RECHECKED MANUALLY. PT'S BP NOW: 184/110. MD DILLON ESQUIVEL CALLED, AND MADE AWARE. PT HAS NO BP MEDS. RECOMMENDS HYDRALAZINE 10 MG Q8 HR PRN FOR SBP> 160. ORDER FOLLOWED, AND IMPLEMENTED.
[2022-09-14] MEDS: hydrALAZINE HCL IV 20 MG VIAL IV PRN (23:20)
[2022-09-15] MEDS: MORPHINE SULFATE INJ 4 MG/ML DISP.SYRIN IV PRN ×2 (02:04→21:16)
[2022-09-15] MEDS: INSULIN REGULAR, HUMAN 100 UNIT/ML 3 ML VIAL SQ PRN ×3 (06:45→21:16)
[2022-09-15] MEDS: BLOOD SUGAR DIAGNOSTIC 1 EACH STRIP IN SCH ×4 (06:47→21:14)
--- NOTE | 2022-09-15 07:08 | NUR ---
DIE CAST OPERATOR CLOSING NOTE LEFT PATIENT IN BED , SLEEPING. PT ALERT AND ORIENTED X 4. BREATHING EVEN AND NONLABORED. STABLE ON ROOM AIR. IN NO APPARENT DISTRESS. NO C/O PAIN OR DISCOMFORT AT THIS TIME. ON TELE MONITORING WHICH READS SINUS RHYTHM. PT HAS IV ACCESS TO RIGHT ANTECUBITAL 20G. SAFETY MEASURES MAINTAINED: CALL LIGHT, AND BED SIDE TABLE WITHIN REACH, SIDE RAILS UP X 2, BED IN LOWEST LOCKED POSITION. WILL ENDORSE PT TO AM RN FOR ELISHA.
--- NOTE | 2022-09-15 07:30 | NUR ---
RN Receiving Report. Patient AOx4, able to express his concerns. Patient in room with no signs of distress. Introduced my self to patient and discussed plan of care. Patient is crying states he is stressed out at his current health situation. Discussed plan of care and the need to stabilize his current health situation. All safety precautions taken, call light and table within reach and bed at lowest position. Will continue to monitor throughout shift and provide care as needed.
[2022-09-15] MEDS: hydrALAZINE HCL IV 20 MG VIAL IV PRN ×3 (07:58→20:41)
[2022-09-15 08:00] VITALS: BP 175/110
[2022-09-15] MEDS: CLOPIDOGREL BISULFATE 75 MG TABLET PO SCH (08:46)
[2022-09-15 10:09] VITALS: BP 173/97
[2022-09-15] MEDS ORDERED: hydrALAZINE HCL IV 20 MG VIAL IV PRN (12:00)
[2022-09-15] MEDS ORDERED: LORAZEPAM INJ 2 MG/ML VIAL IV PRN ×2 (14:00)
[2022-09-15 16:00] VITALS: BP 130/100
[2022-09-15] MEDS: METFORMIN 500 MG TABLET PO SCH (16:38)
[2022-09-15] MEDS: DULOXETINE HCL 30 MG CAPSULE.DR PO SCH (16:38)
--- NOTE | 2022-09-15 17:35 | NUR ---
transfer table operator helper Note Patient transferred to Room #106, report given to nurse at bedside.
[2022-09-15] MEDS ORDERED: AMIODARONE 150 MG in IV D5W 100 ML IV ONE (18:00)
--- NOTE | 2022-09-15 18:04 | NUR ---
RN NOTE AMIO DRIP LOAD DOSE STARTED, BP-156/86 HR-157 AFIB RVR. WILL CONT TO MONITOR.
[2022-09-15] MEDS: AMIODARONE 450 MG in IV D5W 241 ML IV PRN (18:23)
--- NOTE | 2022-09-15 18:30 | NUR ---
RN NOTE AMIO DRIP STARTED, BP-133/82 HR-120. NO COMPLAINTS OF CHEST PAIN WILL CONTINUE TO MONITOR. TELE READING AFIB.
--- NOTE | 2022-09-15 19:10 | NUR ---
RN NOTES RECEIVED PT FOR CONTINUITY OF CARE. PATIENT A/OX4 IN NO S/SX OF ACUTE DISTRESS AT THIS TIME; CURRENTLY ON ROOM AIR; WITH 02 SAT >95% AT THIS TIME. WITH IV ACCESS R AC#20 PATENT, INTACT AND FLUSHING WELL. WITH RUNNING NS@90CC/HR. AND RUNNING AMIO PER PROTOCOL RECEIVED @ 1MG/MIN. WILL ENSURE SAFETY MEASURES WITHIN THE SHIFT. PATIENT BED ALARM IS ON. HEAD OF BED ELEVATED. BED IS LOCKED, IN LOWEST POSITION AND SIDE RAILS UP. CALL LIGHT WITHIN REACH OF THE PATIENT. WILL CONTINUE TO MONITOR AND REASSESS FOR ANY CHANGES AND WILL CARRY OUT ANY ONGOING AND ACTIVE MD ORDER.
[2022-09-15] MEDS: ONDANSETRON HCL/PF 4 MG/2 ML VIAL IV PRN (19:40)
[2022-09-15 20:00] VITALS: BP 180/100
[2022-09-15] MEDS: IV NS 0.9% 1,000 ML IV PRN (20:29)
[2022-09-15] MEDS: ATORVASTATIN 40 MG TABLET PO SCH (21:03)
[2022-09-15 21:30] VITALS: BP 160/94
[2022-09-16] VITALS (7 sets, daily range): BP systolic 158–192; BP diastolic 91–104
[2022-09-16] MEDS: AMIODARONE 450 MG in IV D5W 241 ML IV PRN (00:52)
--- NOTE | 2022-09-16 04:00 | NUR ---
RN NOTES PATIENT REMAINED TO BE IN NO SIGNS OF ACUTE RESPIRATORY DISTRESS ,SAFE ENVIRONMENT MAINTAINED FOR PT. AM PATIENT CARE ASSISTANCE RENDERED. WILL CONTINUE TO MONITOR AND REASSESS FOR ANY CHANGES THROUGHOUT THE SHIFT.
[2022-09-16] MEDS: hydrALAZINE HCL IV 20 MG VIAL IV PRN ×3 (04:57→21:14)
--- NOTE | 2022-09-16 05:00 | NUR ---
RN NOTES SECURED NEW IV LINE ON L FA #22, PATENT, INTACT AND FLUSHING WELL.
--- NOTE | 2022-09-16 06:45 | NUR ---
RN CLOSING NOTE: PATIENT REMAINS IN ROOM IN NO SIGNS OF RESPIRATORY DISTRESS, PATIENT NOW ON 2L OF 02 VIA NC ;TOLERATING WELL SATURATING @ >95% SP02. SAFETY MEASURES IMPLEMENTED, BED IN LOWEST POSITION, LOCKED, SIDE RAILS UP, CALL LIGHT WITHIN REACH. ALL NEEDS AND ORDERS ADDRESSED DURING THE SHIFT. IV ACCESS MAINTAINED INTACT, SECURED AND FLUSHING WELL. IV FLUIDS RUNNING ORDER. ALL DUE MEDS GIVEN ORDERED & SCHEDULED ; PATIENT TOLERATED WELL. STILL WITH ONGOING AMIO DRIP @0.5MG/MIN, RUNNING PER PROTOCOL. PATIENT KEPT CLEAN AND COMFORTABLE WITHIN THE SHIFT. PATIENT ENDORSED TO INCOMING SHIFT RN WITH STABLE VITAL SIGN AND FOR CONTINUITY OF CARE.
--- NOTE | 2022-09-16 07:20 | NUR ---
RN opening NOTES PATIENT A/OX4. PT ROOM AIR, WITH 02 SAT >95% AT THIS TIME. WITH IV ACCESS R AC#20 PATENT, INTACT AND FLUSHING WELL. RUNNING NS@90CC/HR AND ON AMIODARONE DRIP. PT AMBULATORY WITH ASSIST. ALL SAFETY MEASURES WITHIN PLACE.. PATIENT BED ALARM IS ON. HEAD OF BED ELEVATED. BED IS LOCKED, IN LOWEST POSITION AND SIDE RAILS UP X2. CALL LIGHT WITHIN REACH AND BEDSIDE TABLE NEXT TO PATIENT.
[2022-09-16] MEDS: ONDANSETRON HCL/PF 4 MG/2 ML VIAL IV PRN (07:32)
[2022-09-16] MEDS: BLOOD SUGAR DIAGNOSTIC 1 EACH STRIP IN SCH ×4 (08:13→22:28)
[2022-09-16] MEDS: CLOPIDOGREL BISULFATE 75 MG TABLET PO SCH (08:25)
[2022-09-16] MEDS: METFORMIN 500 MG TABLET PO SCH ×2 (08:25→16:31)
[2022-09-16] MEDS ORDERED: LOSARTAN POTASSIUM 25 MG TABLET PO SCH (09:00)
[2022-09-16] MEDS: INSULIN REGULAR, HUMAN 100 UNIT/ML 3 ML VIAL SQ PRN ×2 (10:17→12:03)
[2022-09-16] MEDS: ENSURE ENLIVE 237 ML LIQUID (VANILLA) PO SCH ×2 (10:30→17:00)
[2022-09-16] MEDS ORDERED: ACETAMINOPHEN 325 MG TABLET PO PRN (10:30)
--- NOTE | 2022-09-16 10:32 | NUR ---
rn note pt says he is allergic to norco.asked taty boudreaux if he can be ordered tylenol. Taty boudreaux said ok to order tylenol 650 mg q6 prn, also notifiied taty that pt has poor appetite and if he can be ordered ensure said ok.
[2022-09-16] MEDS: IV NS 0.9% 1,000 ML IV PRN (11:00)
[2022-09-16] MEDS: DULOXETINE HCL 30 MG CAPSULE.DR PO SCH (16:18)
[2022-09-16] MEDS ORDERED: APIXABAN 5 MG TABLET PO SCH (17:00)
--- NOTE | 2022-09-16 18:00 | NUR ---
rn note notified dietary office if they can bring up Ensure. said they would bring it up. it was discarded
--- NOTE | 2022-09-16 19:27 | NUR ---
rn note pt refused insulin.educated about the benefits.pt refused insulin. educated pt about benefits. pt still refused
--- NOTE | 2022-09-16 19:40 | NUR ---
RN OPENING NOTES RECEIVED PATIENT IN BED, AWAKE, A/O X 4 AND VERBALLY RESPONSIVE. ON ROOM AIR AND PT TOLERATED WELL. WITH 02 SAT >95% AT THIS TIME. IV ACCESS ON LAC#20, RONAL MIDLINE INTACT AND PATENT. NO S/S OF INFILTRATIONS. RUNNING NS@90CC/HR. NO C/O PAIN OR DISCOMFORT. NO ACUTE DISTRESS. AMBULATORY WITH ASSIST. ALL SAFETY MEASURES IN PLACE. BED ALARM IS ON. BED IN LOWEST POSITION LOCKED, SIDE RAILS UP X2. PLACE CALL LIGHT WITHIN REACH. WILL CONTINUE TO MONITOR
--- NOTE | 2022-09-16 20:04 | NUR ---
RN CLOSING NOTE PATIENT A/OX4. PT ROOM AIR, WITH 02 SAT >96% AT THIS TIME. PT COMPLAINS OF NO PAIN OR DISCOMFORT IV ACCESS R AC#20 PATENT, INTACT AND FLUSHING WELL. ALL DUE MEDICATIONS GIVEN. PT HAS R UA MIDLINE.INTACT, PATENT AND FLUSHING WELL. RUNNING NS@90CC/HR PT AMBULATORY WITH ASSIST. ALL SAFETY MEASURES WITHIN PLACE.PATIENT BED ALARM IS ON. HEAD OF BED ELEVATED. BED IS LOCKED, IN LOWEST POSITION AND SIDE RAILS UP X2. CALL LIGHT WITHIN REACH AND BEDSIDE TABLE NEXT TO PATIENT.
[2022-09-16] MEDS: ATORVASTATIN 40 MG TABLET PO SCH (21:15)
--- NOTE | 2022-09-16 21:18 | NUR ---
RN NOTES: PT'S BLOOD PRESSURE 169/92. PULSE- 82. HYDRALAZINE 0.5 ML GIVEN PER PRN ORDERED. PT TOLERATED WELL. WILL CONTINUE TO MONITOR
[2022-09-16] MEDS: *INSULIN REGULAR(HUMULIN R)HUM 100 UNIT/ML VIAL SQ PRN (22:29)
--- NOTE | 2022-09-16 22:31 | NUR ---
RN NOTES: PT'S BLOOD SUGAR 281. 6 UNITS OF REGULAR INSULIN GIVEN. NO S/S OF HYPER/HYPOGLYCEMIA. WILL CONTINUE TO MONITOR
[2022-09-16] MEDS ORDERED: AMIODARONE HCL 200 MG TABLET PO SCH (23:00)
[2022-09-17] VITALS: BP 160/94
[2022-09-17] MEDS: ONDANSETRON HCL/PF 4 MG/2 ML VIAL IV PRN (02:11)
--- NOTE | 2022-09-17 02:19 | NUR ---
RN NOTES: PT C/O SEVERE NAUSEA. NOTED SMALL AMOUNT OF VOMITING. ZOFRAN GIVEN PRN ORDERED. WILL CONTINUE TO MONITOR
[2022-09-17] MEDS: IV NS 0.9% 1,000 ML IV PRN (02:29)
[2022-09-17 04:00] VITALS: BP 160/101
--- NOTE | 2022-09-17 07:03 | NUR ---
HEALTH ASSESSMENT AND TREATMENT TEACHER NOTES: PT KEPT CRYING, HE WANTS TO GO HOME, DOESN'T WANT STAY AT THE HOSPITAL ANY MORE. EDUCATED PT THE RISKS AND BENEFITS BUT STILL DOESN'T WANT TO STAY AT HOSPITAL. CALLED HIS SISTER, MONA TO PICK HIM UP. NOTIFIED DR. CARRANZA. HE AGREED. PT SIGNED AMA PAPER AND BELONGINGS LIST. SISTER CAME TO PICK HIM UP AT 0655. EDUCATED HIM, IF FEELS CHEST PAIN OR ANY OTHER COMPLICATIONS, IMMEDIATELY GO TO THE ER. REMOVED BOTH IV ACCESS. ASSISTED PT TO THE LOBBY VIA WHEEL CHAIR. PT LEFT HOSPITAL AT 0700 WITH HIS SISTER IN STABLE CONDITIONS
--- NOTE | 2022-09-17 08:30 | NUR ---
RT MD PLACED ON ORDER FOR EKG THE PT IS dISCHARGED NOT IN ROOM TO PERFORM EKG
== END 2022-09-17 06:55 | disposition left against medical advice (07) | DRG 58 ==
LOC: ER 14:34 → TELE 20:53 → TELE1 09-15 17:10 → TELE-TD 09-15 17:45
PROVIDERS: ADMIT Nurse Practitioner Acute Care; ATTEND Nurse Practitioner Acute Care
PROC: 05HA33Z Insertion of Infusion Device into Left Brachial Vein, Percutaneous Approach (ICD-10-PCS; principal; 2022-09-16)
DX: I69.398 Other sequelae of cerebral infarction (principal); F33.2 Major depressive disorder, recurrent severe without psychotic features; D72.829 Elevated white blood cell count, unspecified; E11.65 Type 2 diabetes mellitus with hyperglycemia; E78.5 Hyperlipidemia, unspecified; I10 Essential (primary) hypertension; I48.91 Unspecified atrial fibrillation; Z20.822 Contact with and (suspected) exposure to COVID-19; R26.9 Unspecified abnormalities of gait and mobility; Z59.00 Homelessness unspecified; Z83.3 Family history of diabetes mellitus; Z82.3 Family history of stroke
CPT/HCPCS: 36415; 70450-TC; 70496-TC; 70498-TC; 71045-TC; 80048-TC; 80053-TC; 80061-TC; 80076-TC; 81001; 82962-TC; 83735-TC; 84439-TC; 84443-TC; 84484-TC; 85025-TC; 85730-TC; 87081-TC; 92526; 92611-TC; 93307-TC; 93880-TC; 97112-TC; 97116-TC; 97530-TC; C9803; G0378; J0282; J0360; J1815; J2060; J2270; J2405; J3490; J7030; J7050; J7060; Q9967

== ENCOUNTER 2024-03-18 19:16 | Emergency (ER) | payer MEDICAID ==
[~2024-03-18] VITALS: Ht 167.6 cm; Wt 79.4 kg
[2024-03-18 19:33] VITALS: TEMP 99.4
[2024-03-18] MEDS ORDERED: ACYCLOVIR 200 MG CAPSULE ONE (20:08)
[2024-03-18] MEDS: ACYCLOVIR 200 MG CAPSULE PO ONE (20:13)
[2024-03-18] MEDS ORDERED: NAPROXEN 250 MG TABLET ONE (20:41)
[2024-03-18] MEDS ORDERED: LORAZEPAM 0.5 MG TABLET ONE (20:41)
[2024-03-18 20:44] LABS: BASOPHILS # (AUTO) 0.1 K/uL (0.0-0.2); BASOPHILS % (AUTO) 1.1 % (0.0-2.0); EOSINOPHILS # (AUTO) 0.4 K/uL (0.0-0.7); EOSINOPHILS % (AUTO) 4.4 % (0.0-6.0); HEMATOCRIT 41 % (39-51); HEMOGLOBIN 13.9 g/dL (13.5-17.5); LYMPHOCYTES # (AUTO) 1.9 K/uL (0.8-4.8); LYMPHOCYTES % (AUTO) 18.6 % (20.0-44.0); MEAN CORPUSCULAR HEMOGLOBIN 28 PG (26.0-33.0); MEAN CORPUSCULAR HGB CONC 34 g/dl (31.0-36.0); MEAN CORPUSCULAR VOLUME 83 fL (80-96); MONOCYTES # (AUTO) 1.2 K/uL (0.1-1.30); MONOCYTES % (AUTO) 12.3 % (2.0-12.0); NEUTROPHILS # (AUTO) 6.4 K/uL (1.8-8.9); NEUTROPHILS % (AUTO) 63.6 % (43.0-81.0); PLATELET COUNT (AUTO) 259 K/uL (150-450); RED BLOOD CELL COUNT(AUTO) 4.94 MIL/uL (4.5-6.0); RED CELL DISTRIBUTION WIDTH 13.5 % (11.5-15.0); WHITE BLOOD COUNT (AUTO) 10.1 K/uL (4.3-11.0)
[2024-03-18] MEDS: LORAZEPAM 1 MG TABLET PO ONE (20:45)
[2024-03-18] MEDS: NAPROXEN 250 MG TABLET PO ONE (20:45)
[2024-03-18 20:57] LABS: CALCIUM, SERUM 8.9 mg/dL (8.5-10.1); CREATININE 1.1 mg/dL (0.6-1.3); POTASSIUM 3.5 mmol/L (3.5-5.1)
[2024-03-18 21:06] LABS: APPEARANCE,URINE Clear (CLEAR); BILIRUBIN,URINE Negative (NEGATIVE); BLOOD, URINE Trace-intact Ery/uL (NEGATIVE); COLOR,URINE YELLOW (YELLOW); KETONES,URINE Trace mg/dL (NEGATIVE); LEUKOCYTE ESTERASE ,URINE Negative (NEGATIVE); NITRITE, URINE Negative (NEGATIVE); PH,URINE 5.5 (5.0-8.0); PROTEIN,URINE 100 mg/dl (NEGATIVE); UGLUCOSE Negative (NEGATIVE); UROBILINOGEN,URINE 0.2 EU/dL (0.2)
[2024-03-18 22:00] LABS: ADD URINE CULTURE NO; BACTERIA,URINE Rare /HPF (None Seen); RBC,URINE 0-2 /HPF (0-2); SQUAMOUS EPITHELIAL CELL,UR Rare /HPF (None Seen); WBC,URINE 0-2 /HPF (0-3)
[2024-03-18] MEDS ORDERED: ACYC-108 PO (22:23)
[2024-03-18] MEDS ORDERED: DIPH28.34 TP (22:23)
[2024-03-18] MEDS ORDERED: HYDR28.32 TP (22:23)
[2024-03-18] MEDS ORDERED: IBUP-1957 PO (22:23)
[2024-03-18 22:35] VITALS: BP 162/99; O2SAT 98
== END 2024-03-18 22:35 | disposition home or self-care (01) ==
LOC: ER 19:18
DX: B02.9 Zoster without complications (principal); I13.10 Hypertensive heart and chronic kidney disease without heart failure, with stage 1 through stage 4 chronic kidney disease, or unspecified chronic kidney disease; E11.22 Type 2 diabetes mellitus with diabetic chronic kidney disease; N18.9 Chronic kidney disease, unspecified; F12.10 Cannabis abuse, uncomplicated; Z88.6 Allergy status to analgesic agent; Z88.8 Allergy status to other drugs, medicaments and biological substances
CPT/HCPCS: 36415; 80048-TC; 81001; 85025-TC

== ENCOUNTER 2024-04-15 14:55 | Emergency (ER) | payer MEDICAID ==
[~2024-04-15] VITALS: Ht 167.6 cm; Wt 80.7 kg
[~2024-04-15 14:55] MED LIST changes: +ACYC-108 PO; +DIPH28.34 TP; +HYDR28.32 TP; -IBUP-1955 PO; +IBUP-1957 PO; -POLY10DR3 EACHEYE
[2024-04-15 15:49] VITALS: BP 134/89; TEMP 97.9
[2024-04-15] MEDS ORDERED: GABA-532 PO (17:38)
[2024-04-15] MEDS ORDERED: VALA100026 PO (17:38)
[2024-04-15 17:45] VITALS: O2SAT 97
== END 2024-04-15 17:46 | disposition home or self-care (01) ==
LOC: ER 16:12
DX: B02.9 Zoster without complications (principal); I12.9 Hypertensive chronic kidney disease with stage 1 through stage 4 chronic kidney disease, or unspecified chronic kidney disease; E11.22 Type 2 diabetes mellitus with diabetic chronic kidney disease; N18.9 Chronic kidney disease, unspecified; F12.10 Cannabis abuse, uncomplicated; Z86.79 Personal history of other diseases of the circulatory system; Z88.8 Allergy status to other drugs, medicaments and biological substances; Z88.6 Allergy status to analgesic agent
CPT/HCPCS: 82962-TC